=== PATIENT | female | born 1970 | race Caucasian/White ===

== ENCOUNTER 2016-10-06 18:33 | Emergency (ER) | payer OTHER, BC ==
[~2016-10-06] VITALS: Ht 162.6 cm; Wt 67.3 kg
[~2016-10-06 18:33] MED LIST: ANTIVERT25 MG PO; CLINDAMYCIN HC300 MG PO; DAILY VITAMIN1 EAC8 PO; ENDOCET 5-3251 EACH PO; Ecotrin PO; FLEXERIL10 MG PO; GABAPENTIN800 MG PO; MOBIC7.5 MG PO; MOTRIN600 MG PO; NAPROXEN500 MG PO; NO MEDS; OXAYDO5 MG PO; PREDNISONE20 MG PO; PROZAC20 MG PO; SKELAXIN400 M1 PO; SUDAFED 12-HOU120 MG PO; TESSALON200 MG PO; TYLENOL WITH C1 EACH PO; VICODIN 5-5001 EACH NG; [UNRECOGNIZED DRUG - OTHER] MM
[2016-10-06 19:47] VITALS: BP 117/84
[2016-10-06] MEDS ORDERED: MEDROL DOSEPAK4 MG PO (20:11)
[2016-10-06] MEDS ORDERED: ROXICODONE5 MG PO (20:11)
== END 2016-10-06 20:20 | disposition home or self-care (01) ==
LOC: EME 18:33
DX: M54.16 Radiculopathy, lumbar region (principal); F17.200 Nicotine dependence, unspecified, uncomplicated
CPT/HCPCS: 99281; 99283; J3010; J7512

== ENCOUNTER 2016-11-24 22:56 | Emergency (ER) | payer BC ==
[~2016-11-24] VITALS: Ht 162.6 cm; Wt 65.0 kg
[~2016-11-24 22:56] MED LIST changes: +MEDROL DOSEPAK4 MG PO; +ROXICODONE5 MG PO
[2016-11-24 23:33] LABS: HEMATOCRIT 45.4 % (36.0-46.0); MCH 29.9 PG (29.0-34.0); MCV 90.6 FL (83-99); MEAN PLAT.VOLUME 10.7 uM^3 (9.5-12.4); PLATELET COUNT 306 K/uL (156-360); RBC DIS.WIDTH-CV 14.2 % (11.8-14.6); RBC DIS.WIDTH-SD 47.2 % (39-53); RED BLOOD COUNT 5.01 M/uL (3.80-5.20); WHITE BLOOD COUNT 10.4 K/uL (4.1-10.2)
[2016-11-24 23:45] LABS: CHLORIDE 106 mEq/L (99-109); POTASSIUM 4.2 mEq/L (3.7-5.4); SODIUM 140 mEq/L (136-147)
[2016-11-24 23:46] LABS: GLUCOSE 137 mg/dL (70-99)
[2016-11-24 23:48] LABS: ANION GAP 11 MEQ/L (2-14)
[2016-11-24 23:51] LABS: UREA NITROGEN (BUN) 23 mg/dL (9-23)
[2016-11-24 23:54] LABS: GFR ESTIMATE (CALCULATED) > 59 mL/min/; TROP-I INTERPRETATION NEGATIVE; TROPONIN-I < 0.01 ng/mL (0.0-0.30)
[2016-11-25 01:23] LABS: D-DIMER ELISA 0.38 mg/L FEU (< 0.57)
[2016-11-25 01:24] LABS: TOTAL BILIRUBIN 0.3 mg/dL (0.0-1.0)
[2016-11-25 01:25] LABS: ALKALINE PHOSPHATASE 70 IU/L (3-129)
[2016-11-25 01:27] LABS: DIRECT BILIRUBIN 0.1 mg/dL (0.0-0.3)
[2016-11-25 01:28] LABS: LIPASE 69 U/L (1.0-51.0)
[2016-11-25 02:22] LABS: TROP-I INTERPRETATION NEGATIVE; TROPONIN-I < 0.01 ng/mL (0.0-0.30)
[2016-11-25] MEDS ORDERED: PEPCID20 MG PO (02:24)
[2016-11-25] MEDS ORDERED: VALIUM2 MG PO (02:25)
[2016-11-25 02:38] VITALS: BP 102/67
== END 2016-11-25 02:47 | disposition home or self-care (01) ==
LOC: EME 22:56
PROVIDERS: Emergency Medicine
DX: R07.89 Other chest pain (principal); R10.816 Epigastric abdominal tenderness; Z82.49 Family history of ischemic heart disease and other diseases of the circulatory system; F17.200 Nicotine dependence, unspecified, uncomplicated
CPT/HCPCS: 71020; 80048; 80076; 83690; 84484; 85027; 85379; 93005; 99281; 99284

== ENCOUNTER 2017-02-13 23:10 | Emergency (ER) | payer OTHER ==
[~2017-02-13] VITALS: Ht 162.6 cm; Wt 77.1 kg
[~2017-02-13 23:10] MED LIST changes: +PEPCID20 MG PO; +VALIUM2 MG PO
[2017-02-13 23:53] LABS: MCH 29.7 PG (29.0-34.0); MCHC 32.2 G/DL (30.0-36.0); MCV 92.3 FL (83-99); MEAN PLAT.VOLUME 11.2 uM^3 (9.5-12.4); PLATELET COUNT 240 K/uL (156-360); RBC DIS.WIDTH-SD 47.8 % (39-53); RED BLOOD COUNT 4.44 M/uL (3.80-5.20); WHITE BLOOD COUNT 14.1 K/uL (4.1-10.2)
[2017-02-14 00:03] LABS: CHLORIDE 106 mEq/L (99-109); POTASSIUM 4.1 mEq/L (3.7-5.4); SODIUM 140 mEq/L (136-147)
[2017-02-14 00:06] LABS: GLUCOSE 118 mg/dL (70-99)
[2017-02-14 00:07] LABS: ANION GAP 6 MEQ/L (2-14)
[2017-02-14 00:08] LABS: TOTAL BILIRUBIN 0.3 mg/dL (0.0-1.0)
[2017-02-14 00:09] LABS: ALKALINE PHOSPHATASE 78 IU/L (3-129)
[2017-02-14 00:10] LABS: GFR ESTIMATE (CALCULATED) > 59 mL/min/
[2017-02-14 00:11] LABS: UREA NITROGEN (BUN) 13 mg/dL (9-23)
[2017-02-14 00:18] LABS: QUANTITATIVE HCG < 4.0 MIU/ML
[2017-02-14] MEDS ORDERED: KEFLEX500 MG PO (02:36)
[2017-02-14] MEDS ORDERED: OXAYDO5 MG PO (02:40)
[2017-02-14 02:53] VITALS: BP 111/82
== END 2017-02-14 02:55 | disposition home or self-care (01) ==
LOC: EME 23:10 → EXP 23:10
DX: L03.115 Cellulitis of right lower limb (principal); L03.116 Cellulitis of left lower limb; Z88.5 Allergy status to narcotic agent; F17.200 Nicotine dependence, unspecified, uncomplicated
CPT/HCPCS: 80053; 83605; 84702; 85027; 87040; 99281; 99285; J0696; J1885; J7030; J7050

== ENCOUNTER 2017-02-15 21:43 | Inpatient (IN) | payer OTHER ==
[~2017-02-15] VITALS: Ht 162.6 cm; Wt 77.2 kg
[~2017-02-15 21:43] MED LIST changes: +KEFLEX500 MG PO
[2017-02-15 23:01] LABS: HEMATOCRIT 40.9 % (36.0-46.0); MCH 30.1 PG (29.0-34.0); MCHC 32.3 G/DL (30.0-36.0); MCV 93.4 FL (83-99); MEAN PLAT.VOLUME 11.1 uM^3 (9.5-12.4); PLATELET COUNT 251 K/uL (156-360); RBC DIS.WIDTH-CV 13.9 % (11.8-14.6); RBC DIS.WIDTH-SD 48.1 % (39-53); RED BLOOD COUNT 4.38 M/uL (3.80-5.20); WHITE BLOOD COUNT 8.4 K/uL (4.1-10.2)
[2017-02-15 23:18] LABS: CHLORIDE 107 mEq/L (99-109); POTASSIUM 4.2 mEq/L (3.7-5.4); SODIUM 141 mEq/L (136-147)
[2017-02-15 23:20] LABS: GLUCOSE 108 mg/dL (70-99)
[2017-02-15 23:21] LABS: ANION GAP 8 MEQ/L (2-14)
[2017-02-15 23:24] LABS: GFR ESTIMATE (CALCULATED) > 59 mL/min/
[2017-02-15 23:25] LABS: UREA NITROGEN (BUN) 10 mg/dL (9-23)
[2017-02-15 23:40] LABS: ADD MIUA? NO; BILIRUBIN NEGATIVE; BLOOD NEGATIVE; COLOR YELLOW ((YELLOW)); GLUCOSE (STRIP) NEGATIVE; KETONES NEGATIVE; LEUKOCYTES NEGATIVE; NITRITE NEGATIVE; PROTEIN (STRIP) NEGATIVE; SPECIFIC GRAVITY 1.015 (1.000-1.030); UCUL ADDED? NO; UROBILINOGEN 0.2 MG/DL (0.2-1.0)
[2017-02-16] MEDS ORDERED: LYRICA300 MG PO (00:24)
[2017-02-16 00:32] LABS: ABS NEUTROPHIL COUNT 4.1; ANISOCYTOSIS 1+; EOSINOPHIL ABS CT 0.3; EOSINOPHILS 3.5 % (0-5.0); INSTRUMENT ABS NEUTROPHIL CT 3.8 K/uL; LYMPHOCYTES 39.8 % (15.0-45.0); MACROCYTES 1+; NUCLEATED RBC'S 0.9; PLAT.SUFFICIENCY ADEQUATE; SEG.NEUTROPHILS 48.7 % (46.0-76.0)
[2017-02-16 04:13] VITALS: BP 126/80
[2017-02-16 06:55] VITALS: BP 102/56
[2017-02-16 12:00] VITALS: BP 123/63
[2017-02-16 15:05] VITALS: BP 106/58
[2017-02-16 19:33] VITALS: BP 101/64
[2017-02-16 23:10] VITALS: BP 126/78
[2017-02-17 03:00] VITALS: BP 124/79
[2017-02-17] MEDS ORDERED: CLEOCIN300 MG PO (08:25)
[2017-02-17 08:29] VITALS: BP 116/71
== END 2017-02-17 09:26 | disposition home or self-care (01) | DRG 603 ==
LOC: EXP 21:43 → EME 21:43 → EDOF 02-16 01:46 → 2EAST 02-16 01:46 → ENRESERV 02-16 01:48 → 2EAST 02-16 04:10
DX: L03.115 Cellulitis of right lower limb (principal); L03.116 Cellulitis of left lower limb; F17.200 Nicotine dependence, unspecified, uncomplicated; M79.604 Pain in right leg; M79.605 Pain in left leg; M54.5 Low back pain; G89.29 Other chronic pain; F32.9 Major depressive disorder, single episode, unspecified; Z88.6 Allergy status to analgesic agent; Z82.49 Family history of ischemic heart disease and other diseases of the circulatory system; Z86.73 Personal history of transient ischemic attack (TIA), and cerebral infarction without residual deficits
CPT/HCPCS: 80048; 81003; 83605; 85025; 93970; 99281; 99285; J1650; J7030

== ENCOUNTER 2017-06-13 09:44 | Day surgery (SDC) | payer OTHER ==
[~2017-06-13] VITALS: Ht 162.6 cm; Wt 65.8 kg
[~2017-06-13 09:44] MED LIST changes: +CLEOCIN300 MG PO; +LEXAPRO10 MG PO; +LYRICA300 MG PO; +ROSADAN45 G1 TP; +ZANAFLEX2 M1 PO
== END 2017-06-13 11:20 | disposition home or self-care (01) ==
LOC: PAIN 09:44 → SDC 10:15 → PAIN 11:20
DX: M47.26 Other spondylosis with radiculopathy, lumbar region (principal); M51.16 Intervertebral disc disorders with radiculopathy, lumbar region; M48.061 Spinal stenosis, lumbar region without neurogenic claudication; F41.8 Other specified anxiety disorders; Z79.891 Long term (current) use of opiate analgesic; F17.200 Nicotine dependence, unspecified, uncomplicated; Z86.73 Personal history of transient ischemic attack (TIA), and cerebral infarction without residual deficits
CPT/HCPCS: J1030; J2250; J3010; S0020

== ENCOUNTER 2017-06-22 09:53 | Day surgery (SDC) | payer OTHER ==
[~2017-06-22] VITALS: Ht 162.6 cm; Wt 65.8 kg
== END 2017-06-22 12:20 | disposition home or self-care (01) ==
LOC: PAIN 09:53 → SDC 10:15 → PAIN 12:20
DX: M47.26 Other spondylosis with radiculopathy, lumbar region (principal); M51.16 Intervertebral disc disorders with radiculopathy, lumbar region; M48.061 Spinal stenosis, lumbar region without neurogenic claudication; F41.8 Other specified anxiety disorders; F17.200 Nicotine dependence, unspecified, uncomplicated; Z86.73 Personal history of transient ischemic attack (TIA), and cerebral infarction without residual deficits
CPT/HCPCS: J1030; J2250; J3010; S0020

== ENCOUNTER 2017-08-10 07:03 | Day surgery (SDC) | payer OTHER ==
[~2017-08-10] VITALS: Ht 162.6 cm; Wt 65.8 kg
[~2017-08-10 07:03] MED LIST changes: +LYRICA150 MG PO; -LYRICA300 MG PO
== END 2017-08-10 09:22 | disposition home or self-care (01) ==
LOC: PAIN 07:03 → SDC 07:30 → PAIN 09:22
DX: M47.26 Other spondylosis with radiculopathy, lumbar region (principal); M54.5 Low back pain; G89.29 Other chronic pain; M51.16 Intervertebral disc disorders with radiculopathy, lumbar region; F41.8 Other specified anxiety disorders; M48.061 Spinal stenosis, lumbar region without neurogenic claudication; F17.200 Nicotine dependence, unspecified, uncomplicated; Z79.891 Long term (current) use of opiate analgesic
CPT/HCPCS: J1030; J1885; J2250; J3010; S0020

== ENCOUNTER 2017-09-25 07:14 | Day surgery (SDC) | payer OTHER ==
[~2017-09-25] VITALS: Ht 162.6 cm; Wt 69.4 kg
[~2017-09-25 07:14] MED LIST changes: +VITAMIN B COMP1 EACH PO
== END 2017-09-25 09:05 | disposition home or self-care (01) ==
LOC: PAIN 07:14 → SDC 07:30 → PAIN 09:05
DX: M47.816 Spondylosis without myelopathy or radiculopathy, lumbar region (principal); M51.36 Other intervertebral disc degeneration, lumbar region; M54.16 Radiculopathy, lumbar region; F41.8 Other specified anxiety disorders; F17.200 Nicotine dependence, unspecified, uncomplicated; Z88.5 Allergy status to narcotic agent; Z88.6 Allergy status to analgesic agent
CPT/HCPCS: J1030; J2250; J3010; S0020

== ENCOUNTER 2018-02-22 11:06 | Emergency (ER) | payer OTHER ==
[~2018-02-22] VITALS: Ht 162.6 cm; Wt 73.2 kg
[2018-02-22 12:08] LABS: BASOPHIL (%) 0.5 % (0-1); BASOPHIL COUNT 0.1 K/uL (0-0.1); EOSINOPHIL (%) 3.2 % (0-5); EOSINOPHIL COUNT 0.4 K/uL (0-0.3); HEMATOCRIT 44.4 % (36.0-46.0); HEMOGLOBIN 14.8 G/DL (11.9-15.5); IMMATURE GRANULOCYTE (%) 0.4 % (0.0-0.7); LYMPHOCYTE (%) 24.4 % (15-42); LYMPHOCYTE COUNT 2.9 K/uL (1.0-2.8); MCH 30.2 PG (29.0-34.0); MCHC 33.3 G/DL (30.0-36.0); MCV 90.6 FL (83-99); MONOCYTE (%) 7.3 % (3-12); MONOCYTE COUNT 0.9 K/uL (0-0.8); NEUTROPHIL (%) 64.2 % (45-76); NEUTROPHIL COUNT 7.6 K/uL (1.8-6.4); PLATELET COUNT 267 K/uL (156-360); RBC DIS.WIDTH-CV 13.9 % (11.8-14.6); RBC DIS.WIDTH-SD 46.5 % (39-53); WHITE BLOOD COUNT 11.9 K/uL (4.1-10.2)
[2018-02-22 12:19] LABS: CHLORIDE 110 mEq/L (99-109); POTASSIUM 4.2 mEq/L (3.7-5.4); SODIUM 142 mEq/L (136-147)
[2018-02-22 12:20] LABS: GLUCOSE 94 mg/dL (70-99)
[2018-02-22 12:24] LABS: CREATININE 0.6 mg/dL (0.6-1.3); GFR ESTIMATE (CALCULATED) > 59 mL/min/
[2018-02-22 12:25] LABS: UREA NITROGEN (BUN) 11 mg/dL (9-23)
[2018-02-22 12:28] LABS: TROP-I INTERPRETATION NEGATIVE; TROPONIN-I < 0.01 ng/mL (0.0-0.30)
[2018-02-22 14:16] LABS: TROP-I INTERPRETATION NEGATIVE; TROPONIN-I < 0.01 ng/mL (0.0-0.30)
[2018-02-22] MEDS ORDERED: MOTRIN800 MG PO (14:23)
[2018-02-22 14:57] VITALS: BP 91/70
== END 2018-02-22 14:58 | disposition home or self-care (01) ==
LOC: EME 11:06
PROVIDERS: Emergency Medicine
DX: R07.89 Other chest pain (principal); F17.200 Nicotine dependence, unspecified, uncomplicated; Z90.49 Acquired absence of other specified parts of digestive tract; Z90.710 Acquired absence of both cervix and uterus; Z88.5 Allergy status to narcotic agent; Z88.6 Allergy status to analgesic agent
CPT/HCPCS: 71045; 80048; 84484; 85025; 93005; 99281; 99285; J1885